=== PATIENT | female | born 1940 | race Caucasian/White ===

== ENCOUNTER 2022-01-01 10:27 | Emergency (ER) | payer OTHER ==
[~2022-01-01] VITALS: Ht 160 cm; Wt 127.0 kg
[~2022-01-01 10:27] MED LIST: ACIDOPHILUS PROB1 MG PO; ALBU90OI INH; ALBU90OI61 INH; ASCO500 PO; AZIT250 PO; BENZ100A PO; CELE200 PO; CEPH500 PO; CETI5 PO; CHOL10002 PO; CODGUAEL PO; CYAN1000 PO; Cipro500 MG PO; DICL25ER PO; DOCU100 PO; FLUSAL1005 INH; FLUT.05NI; FLUT1DIS5 INH; Flagyl500 MG PO; Flovent Diskus50 MCG; HYDR1TAB94 PO; Hair, Skin & N1 EACH PO; IBUP400 PO; KELP150 MC1 PO; Keflex500 MG PO; LISHYD1012 PO; LOSARTAN-HCTZ1 EAC2 PO; LOSARTAN-HCTZ1 EAC6 PO; METF500C PO; METFORMIN HCL1000 M2 PO; METPRE4DP PO; MONT10T PO; Mucinex600 MG PO; Mupirocin22 GM TOP; Nasonex17 GM; Norco 5-325 Ta1 EACH PO; OXYB5 PO; OXYTROL FOR WO1 EACH TD; PRED20 PO; PSEU120ER PO; Percocet 5-3251 EACH PO; Prednisone20 MG PO; Pyridium200 MG PO; SOLI5 PO; VITAMIN D-32000 UNIT PO; Ventolin/Prove6.7 GM; Zithromax250 MG PO; Zofran Odt4 MG SL
[2022-01-01] MEDS ORDERED: QVAR REDIHALE10.6 G2 IH (12:10)
[2022-01-01 12:32] LABS: BASOPHILS ABSOLUTE AUTO 0.05 K/mm3 (0.00-0.23); BASOPHILS PERCENT AUTO 1 % (0-2); EOSINOPHILS PERCENT AUTO 3 % (0-6); Hematocrit 38.4 % (33.0-51.0); IMMATURE GRAN ABSOLUTE AUTO 0.02 K/mm3 (0.00-0.10); IMMATURE GRAN PERCENT AUTO 0 % (0-1); LYMPHOCYTES ABSOLUTE AUTO 0.87 K/mm3 (0.84-5.20); LYMPHOCYTES PERCENT AUTO 11 % (21-46); MONOCYTES PERCENT AUTO 8 % (4-13); Mean Corpuscular HGB 30.2 pg (26.0-34.0); Mean Corpuscular HGB Conc 31.3 g/dL (31.5-36.5); Mean Corpuscular Volume 97 fL (80-100); NEUTROPHILS ABSOLUTE AUTO 6.14 K/mm3 (1.96-9.15); NEUTROPHILS PERCENT AUTO 78 % (41-73); Platelet Count 269 K/mm3 (150-400); RDW Coefficient Variation 14.2 % (11.7-14.2); Red Blood Cell Count 3.98 M/mm3 (3.80-5.20); White Blood Cell Count 7.88 K/mm3 (4.00-11.30)
[2022-01-01 13:03] LABS: Influenza A, PCR NEGATIVE (NEGATIVE); Influenza B, PCR NEGATIVE (NEGATIVE); Resp Syncytial Virus, PCR NEGATIVE (NEGATIVE); SARS-Cov-2 (COVID-19) PCR, MMC NEGATIVE (NEGATIVE)
[2022-01-01 13:32] LABS: Alanine Aminotransfer (ALT/SGP 18 U/L (12-78); Albumin, Blood 3.5 g/dL (3.4-5.0); Alk Phos 57 U/L (50-136); Anion Gap 8 mmol/L (6-16); Aspartate Aminotrans (AST/SGOT 13 U/L (12-37); Bilirubin, Total 0.3 mg/dL (0.1-1.0); Blood Urea Nitrogen 22 mg/dL (8-24); Bun/Creatinine Ratio 25.3 (12.0-20.0); CO2, Blood 25 mmol/L (21-32); Chloride, Blood 106 mmol/L (98-108); Creatinine, Blood 0.87 mg/dL (0.40-1.00); Globulin, Blood 3.6 g/dL (2.2-4.0); Glomerular Filtration Rate >60 (60-); Glucose, Blood 106 mg/dL (70-99); Potassium, Blood 4.5 mmol/L (3.5-5.5); Sodium, Blood 139 mmol/L (136-145); Total Protein, Blood 7.1 g/dL (6.4-8.2)
[2022-01-01] MEDS ORDERED: IPRAT-ALBUT 0.5-3 ML NEB (14:36)
[2022-01-01] MEDS ORDERED: AZIT250 PO (14:36)
[2022-01-01] MEDS ORDERED: METPRE4DP PO (14:36)
== END 2022-01-01 15:07 | disposition home or self-care (01) ==
LOC: ER 10:27
PROVIDERS: Emergency Medicine
DX: J44.0 Chronic obstructive pulmonary disease with (acute) lower respiratory infection (principal); J20.9 Acute bronchitis, unspecified; J44.1 Chronic obstructive pulmonary disease with (acute) exacerbation; Z20.822 Contact with and (suspected) exposure to COVID-19
CPT/HCPCS: 0241U; 36415; 71045; 80053; 83880; 84484; 85025; 93005; 93010; 94640; 96374; 99285-25; J2930

== ENCOUNTER 2022-03-31 14:18 | Emergency (ER) | payer OTHER ==
[~2022-03-31] VITALS: Ht 160 cm; Wt 127.0 kg
[~2022-03-31 14:18] MED LIST changes: -ACIDOPHILUS PROB1 MG PO; -ALBU90OI INH; -ALBU90OI61 INH; -ASCO500 PO; -BENZ100A PO; -CELE200 PO; -CEPH500 PO; -CETI5 PO; -CHOL10002 PO; -CODGUAEL PO; -CYAN1000 PO; -Cipro500 MG PO; -DICL25ER PO; -DOCU100 PO; -FLUSAL1005 INH; -FLUT.05NI; -FLUT1DIS5 INH; -Flagyl500 MG PO; -Flovent Diskus50 MCG; -Hair, Skin & N1 EACH PO; -IBUP400 PO; +IPRAT-ALBUT 0.5-3 ML NEB; -KELP150 MC1 PO; -Keflex500 MG PO; -LISHYD1012 PO; -LOSARTAN-HCTZ1 EAC2 PO; -METF500C PO; -MONT10T PO; -Mucinex600 MG PO; -Mupirocin22 GM TOP; -Nasonex17 GM; -Norco 5-325 Ta1 EACH PO; -OXYB5 PO; -OXYTROL FOR WO1 EACH TD; -PRED20 PO; -PSEU120ER PO; -Percocet 5-3251 EACH PO; -Prednisone20 MG PO; -Pyridium200 MG PO; +QVAR REDIHALE10.6 G2 IH; -SOLI5 PO; -VITAMIN D-32000 UNIT PO; -Zithromax250 MG PO; -Zofran Odt4 MG SL
[2022-03-31 15:08] LABS: BASOPHILS ABSOLUTE AUTO 0.01 K/mm3 (0.00-0.23); BASOPHILS PERCENT AUTO 0 % (0-2); EOSINOPHILS ABSOLUTE AUTO 0.01 K/mm3 (0.00-0.68); EOSINOPHILS PERCENT AUTO 0 % (0-6); Hematocrit 36.5 % (33.0-51.0); Hemoglobin 11.9 g/dL (11.5-16.0); IMMATURE GRAN ABSOLUTE AUTO 0.01 K/mm3 (0.00-0.10); IMMATURE GRAN PERCENT AUTO 0 % (0-1); LYMPHOCYTES ABSOLUTE AUTO 0.52 K/mm3 (0.84-5.20); LYMPHOCYTES PERCENT AUTO 13 % (21-46); MONOCYTES ABSOLUTE AUTO 0.43 K/mm3 (0.16-1.47); MONOCYTES PERCENT AUTO 11 % (4-13); Mean Corpuscular HGB 30.1 pg (26.0-34.0); Mean Corpuscular HGB Conc 32.6 g/dL (31.5-36.5); Mean Corpuscular Volume 92 fL (80-100); Mean Platelet Volume 11.1 fL (9.1-12.4); NEUTROPHILS ABSOLUTE AUTO 2.95 K/mm3 (1.96-9.15); NEUTROPHILS PERCENT AUTO 75 % (41-73); Platelet Count 219 K/mm3 (150-400); RDW Coefficient Variation 13.2 % (11.7-14.2); Red Blood Cell Count 3.95 M/mm3 (3.80-5.20); White Blood Cell Count 3.93 K/mm3 (4.00-11.30)
[2022-03-31 15:40] LABS: Albumin, Blood 3.4 g/dL (3.4-5.0); Albumin/Globulin Ratio 1.2 (0.8-1.8); Bilirubin, Total 0.2 mg/dL (0.1-1.0); Bun/Creatinine Ratio 18.6 (12.0-20.0); Calcium, Blood 8.3 mg/dL (8.5-10.1); Creatinine, Blood 0.97 mg/dL (0.40-1.00); Globulin, Blood 2.9 g/dL (2.2-4.0); Total Protein, Blood 6.3 g/dL (6.4-8.2)
== END 2022-03-31 16:55 | disposition home or self-care (01) ==
LOC: ER 14:18
PROVIDERS: Emergency Medicine
DX: K52.1 Toxic gastroenteritis and colitis (principal); T37.5X5A Adverse effect of antiviral drugs, initial encounter; E87.1 Hypo-osmolality and hyponatremia; U07.1 COVID-19
CPT/HCPCS: 36415; 80053; 85025; A9270; J7030

== ENCOUNTER 2022-08-04 20:06 | Emergency (ER) | payer OTHER ==
[~2022-08-04] VITALS: Ht 160 cm; Wt 113.4 kg
[~2022-08-04 20:06] MED LIST changes: +ACIDOPHILUS PROB1 MG PO; +ALBU90OI INH; +ALBU90OI61 INH; +ASCO500 PO; +BENZ100A PO; +CELE200 PO; +CEPH500 PO; +CETI5 PO; +CHOL10002 PO; +CODGUAEL PO; +CYAN1000 PO; +Cipro500 MG PO; +DICL25ER PO; +DOCU100 PO; +FLUSAL1005 INH; +FLUT.05NI; +FLUT1DIS5 INH; +Flagyl500 MG PO; +Flovent Diskus50 MCG; +Hair, Skin & N1 EACH PO; +IBUP400 PO; +KELP150 MC1 PO; +Keflex500 MG PO; +LISHYD1012 PO; +LOSARTAN-HCTZ1 EAC2 PO; +METF500C PO; +MONT10T PO; +Mucinex600 MG PO; +Mupirocin22 GM TOP; +Nasonex17 GM; +Norco 5-325 Ta1 EACH PO; +OXYB5 PO; +OXYTROL FOR WO1 EACH TD; +PRED20 PO; +PSEU120ER PO; +Percocet 5-3251 EACH PO; +Prednisone20 MG PO; +Pyridium200 MG PO; +SOLI5 PO; +VITAMIN D-32000 UNIT PO; +Zithromax250 MG PO; +Zofran Odt4 MG SL
[2022-08-04 20:37] LABS: BASOPHILS ABSOLUTE AUTO 0.05 K/mm3 (0.00-0.23); BASOPHILS PERCENT AUTO 1 % (0-2); EOSINOPHILS ABSOLUTE AUTO 0.24 K/mm3 (0.00-0.68); EOSINOPHILS PERCENT AUTO 3 % (0-6); Hematocrit 36.2 % (33.0-51.0); Hemoglobin 11.9 g/dL (11.5-16.0); IMMATURE GRAN ABSOLUTE AUTO 0.01 K/mm3 (0.00-0.10); IMMATURE GRAN PERCENT AUTO 0 % (0-1); LYMPHOCYTES ABSOLUTE AUTO 1.08 K/mm3 (0.84-5.20); LYMPHOCYTES PERCENT AUTO 15 % (21-46); MONOCYTES ABSOLUTE AUTO 0.61 K/mm3 (0.16-1.47); MONOCYTES PERCENT AUTO 8 % (4-13); Mean Corpuscular HGB 30.8 pg (26.0-34.0); Mean Corpuscular HGB Conc 32.9 g/dL (31.5-36.5); Mean Corpuscular Volume 94 fL (80-100); Mean Platelet Volume 10.6 fL (9.1-12.4); NEUTROPHILS ABSOLUTE AUTO 5.35 K/mm3 (1.96-9.15); NEUTROPHILS PERCENT AUTO 73 % (41-73); Platelet Count 309 K/mm3 (150-400); RDW Coefficient Variation 13.4 % (11.7-14.2); Red Blood Cell Count 3.86 M/mm3 (3.80-5.20); White Blood Cell Count 7.34 K/mm3 (4.00-11.30)
[2022-08-04 20:54] LABS: Albumin, Blood 3.5 g/dL (3.4-5.0); Albumin/Globulin Ratio 0.9 (0.8-1.8); Bilirubin, Total 0.2 mg/dL (0.1-1.0); Calcium, Blood 9.4 mg/dL (8.5-10.1); Globulin, Blood 3.8 g/dL (2.2-4.0); Potassium, Blood 4.2 mmol/L (3.5-5.5); Total Protein, Blood 7.3 g/dL (6.4-8.2)
[2022-08-04] MEDS ORDERED: Voltaren100 GM TOP (22:01)
[2022-08-04] MEDS ORDERED: LIDO700A20 TOP (22:01)
[2022-08-04 22:06] LABS: Source, Urine Clean Catch
[2022-08-04 22:07] LABS: Bilirubin, Urine Neg (Neg); Blood, Urine 1+ (Neg); Glucose Qualitative, Urine Neg (Neg); Ketones, Urine Neg (Neg); Leukocyte Esterase, Urine 3+ (Neg); Nitrite, Urine Pos (Neg); Protein, Urine 1+ (Neg); Specific Gravity, Urine 1.015 (1.003-1.022); Urobilinogen, Urine NORM (Normal); pH, Urine 6.5 (5.0-8.0)
[2022-08-04 22:08] LABS: Appearance, Urine Hazy (Clear); Color, Urine Yellow (P-Yellow)
[2022-08-04 22:32] LABS: Bacteria Many /hpf; Red Blood Cells, Urine 0-2 /hpf (0-2); Squamous Epithelial Cells Rare /hpf (Few); White Blood Cells, Urine TNTC /hpf (0-5)
[2022-08-04] MEDS ORDERED: CEFP200 PO (22:38)
== END 2022-08-04 23:59 | disposition home or self-care (01) ==
LOC: ER 20:06
PROVIDERS: Physician Assistant
DX: N12 Tubulo-interstitial nephritis, not specified as acute or chronic (principal); J44.9 Chronic obstructive pulmonary disease, unspecified; E11.9 Type 2 diabetes mellitus without complications; K44.9 Diaphragmatic hernia without obstruction or gangrene; E66.01 Morbid (severe) obesity due to excess calories; Z68.41 Body mass index [BMI] 40.0-44.9, adult; Z87.891 Personal history of nicotine dependence; Z88.7 Allergy status to serum and vaccine; Z88.8 Allergy status to other drugs, medicaments and biological substances; Z91.048 Other nonmedicinal substance allergy status; Z79.899 Other long term (current) drug therapy; Z79.84 Long term (current) use of oral hypoglycemic drugs
CPT/HCPCS: 51701; 74176; 80053; 81001; 83690; 84484; 85025; 87077; 87086; 87186; 93005; 93010; 96365; 96375; 99284-25; J0696; J2405; J3010

== ENCOUNTER 2022-11-26 15:01 | Emergency (ER) | payer OTHER ==
[~2022-11-26] VITALS: Ht 160 cm; Wt 127.0 kg
[~2022-11-26 15:01] MED LIST changes: +CEFP200 PO; +LIDO700A20 TOP; +Voltaren100 GM TOP
[2022-11-26 15:42] LABS: BASOPHILS ABSOLUTE AUTO 0.03 K/mm3 (0.00-0.23); BASOPHILS PERCENT AUTO 0 % (0-2); EOSINOPHILS ABSOLUTE AUTO 0.18 K/mm3 (0.00-0.68); EOSINOPHILS PERCENT AUTO 3 % (0-6); Hematocrit 35.9 % (33.0-51.0); Hemoglobin 11.7 g/dL (11.5-16.0); IMMATURE GRAN ABSOLUTE AUTO 0.02 K/mm3 (0.00-0.10); IMMATURE GRAN PERCENT AUTO 0 % (0-1); LYMPHOCYTES ABSOLUTE AUTO 0.83 K/mm3 (0.84-5.20); LYMPHOCYTES PERCENT AUTO 12 % (21-46); MONOCYTES ABSOLUTE AUTO 0.53 K/mm3 (0.16-1.47); MONOCYTES PERCENT AUTO 7 % (4-13); Mean Corpuscular HGB 30.3 pg (26.0-34.0); Mean Corpuscular HGB Conc 32.6 g/dL (31.5-36.5); Mean Corpuscular Volume 93 fL (80-100); Mean Platelet Volume 10.7 fL (9.1-12.4); NEUTROPHILS ABSOLUTE AUTO 5.57 K/mm3 (1.96-9.15); NEUTROPHILS PERCENT AUTO 78 % (41-73); Platelet Count 286 K/mm3 (150-400); RDW Coefficient Variation 14.6 % (11.7-14.2); RDW Standard Deviation 50.2 fL (35.1-46.3); Red Blood Cell Count 3.86 M/mm3 (3.80-5.20); White Blood Cell Count 7.16 K/mm3 (4.00-11.30)
[2022-11-26 16:06] LABS: Albumin, Blood 3.6 g/dL (3.4-5.0); Albumin/Globulin Ratio 1.1 (0.8-1.8); Bilirubin, Total 0.3 mg/dL (0.1-1.0); Bun/Creatinine Ratio 25.2 (12.0-20.0); Calcium, Blood 9.2 mg/dL (8.5-10.1); Creatinine, Blood 0.95 mg/dL (0.40-1.00); Globulin, Blood 3.3 g/dL (2.2-4.0); Potassium, Blood 4.4 mmol/L (3.5-5.5); Total Protein, Blood 6.9 g/dL (6.4-8.2)
[2022-11-26] MEDS ORDERED: OXYC5 PO (19:08)
[2022-11-26] MEDS ORDERED: Mupirocin22 GM TOP (19:08)
== END 2022-11-26 19:17 | disposition home or self-care (01) ==
LOC: ER 15:01
PROVIDERS: Physician Assistant
DX: M79.605 Pain in left leg (principal); L98.491 Non-pressure chronic ulcer of skin of other sites limited to breakdown of skin; E11.9 Type 2 diabetes mellitus without complications; I10 Essential (primary) hypertension; Z79.899 Other long term (current) drug therapy; Z79.84 Long term (current) use of oral hypoglycemic drugs; Z87.891 Personal history of nicotine dependence
CPT/HCPCS: 36415; 73502; 73630; 80053; 85025; A9270

== ENCOUNTER → 2023-04-29 | Outpatient (CLI) | payer OTHER ==
[~2023-04-29] MED LIST changes: +OXYC5 PO
== END | disposition home or self-care (01) ==
LOC: LAB SHORT 13:42 → LAB 13:42
DX: N39.0 Urinary tract infection, site not specified (principal)
CPT/HCPCS: 87077; 87086; 87186

== ENCOUNTER → 2024-07-07 | Outpatient (CLI) | payer OTHER ==
[~2024-07-07] MED LIST changes: +Bactrim Ds Tab1 EACH PO; +LOSA25 PO; +MULVITA PO
[2024-07-08 13:24] LABS: Albumin, Blood 3.5 g/dL (3.4-5.0); Albumin/Globulin Ratio 1.1 (0.8-1.8); Bilirubin, Total 0.3 mg/dL (0.1-1.0); Bun/Creatinine Ratio 15.5 (12.0-20.0); Calcium, Blood 8.9 mg/dL (8.5-10.1); Creatinine, Blood 0.97 mg/dL (0.40-1.00); Globulin, Blood 3.1 g/dL (2.2-4.0); Potassium, Blood 4.9 mmol/L (3.5-5.5); Total Protein, Blood 6.6 g/dL (6.4-8.2)
== END ==
LOC: LAB 16:32 → LAB SHORT 16:32
PROVIDERS: Family Medicine
DX: E11.9 Type 2 diabetes mellitus without complications (principal)
CPT/HCPCS: 80053; 83036

== ENCOUNTER → 2024-09-29 | Outpatient (CLI) | payer OTHER ==
[~2024-09-29] MED LIST changes: +DOXY100 PO; +HYDROCODONE-AC1 EA10 PO
[2024-09-29 11:57] LABS: Source, Urine Clean Catch
[2024-09-29 18:58] LABS: Appearance, Urine Cloudy (Clear); Bilirubin, Urine Neg (Neg); Blood, Urine 2+ (Neg); Glucose Qualitative, Urine Neg (Neg); Ketones, Urine Neg (Neg); Leukocyte Esterase, Urine 3+ (Neg); Nitrite, Urine Neg (Neg); Protein, Urine 2+ (Neg); Urobilinogen, Urine NORM (Normal)
[2024-09-29 19:11] LABS: Color, Urine Pale Yellow (P-Yellow)
[2024-09-29 19:12] LABS: Bacteria Many /hpf; Squamous Epithelial Cells Few /hpf (Few); White Blood Cells, Urine TNTC /hpf (0-5)
== END ==
LOC: LAB SHORT 09:00 → LAB 09:00
PROVIDERS: Family Medicine
DX: N39.0 Urinary tract infection, site not specified (principal)
CPT/HCPCS: 81001; 87077; 87086; 87186

== ENCOUNTER 2024-12-17 13:34 | Emergency (ER) | payer OTHER ==
[~2024-12-17] VITALS: Ht 160 cm; Wt 127.0 kg
[2024-12-17 14:59] LABS: BASOPHILS ABSOLUTE AUTO 0.02 K/mm3 (0.00-0.23); BASOPHILS PERCENT AUTO 0 % (0-2); EOSINOPHILS ABSOLUTE AUTO 0.11 K/mm3 (0.00-0.68); EOSINOPHILS PERCENT AUTO 1 % (0-6); Hematocrit 34.3 % (33.0-51.0); Hemoglobin 11.3 g/dL (11.5-16.0); IMMATURE GRAN ABSOLUTE AUTO 0.04 K/mm3 (0.00-0.10); IMMATURE GRAN PERCENT AUTO 0 % (0-1); LYMPHOCYTES ABSOLUTE AUTO 0.44 K/mm3 (0.84-5.20); LYMPHOCYTES PERCENT AUTO 4 % (21-46); MONOCYTES ABSOLUTE AUTO 0.75 K/mm3 (0.16-1.47); MONOCYTES PERCENT AUTO 7 % (4-13); Mean Corpuscular HGB 31.7 pg (26.0-34.0); Mean Corpuscular HGB Conc 32.9 g/dL (31.5-36.5); Mean Corpuscular Volume 96 fL (80-100); Mean Platelet Volume 10.3 fL (9.1-12.4); NEUTROPHILS PERCENT AUTO 87 % (41-73); Platelet Count 210 K/mm3 (150-400); RDW Coefficient Variation 14.7 % (11.7-14.2); RDW Standard Deviation 52.4 fL (35.1-46.3); Red Blood Cell Count 3.56 M/mm3 (3.80-5.20); White Blood Cell Count 10.86 K/mm3 (4.00-11.30)
[2024-12-17 15:24] LABS: Albumin, Blood 2.9 g/dL (3.4-5.0); Albumin/Globulin Ratio 0.8 (0.8-1.8); Bilirubin, Total 0.4 mg/dL (0.1-1.0); Calcium, Blood 8.6 mg/dL (8.5-10.1); Creatinine, Blood 1.84 mg/dL (0.40-1.00); Globulin, Blood 3.7 g/dL (2.2-4.0); Potassium, Blood 4.5 mmol/L (3.5-5.5); Total Protein, Blood 6.6 g/dL (6.4-8.2)
[2024-12-17 17:09] LABS: CORONAVIRUS COVID-19 AG Negative (NEGATIVE); INFLUENZA A AG Negative (NEGATIVE); INFLUENZA B AG Negative (NEGATIVE)
[2024-12-17 17:25] VITALS: BP 161/49
== END 2024-12-17 17:50 | disposition home or self-care (01) ==
LOC: ER 13:34
PROVIDERS: Emergency Medicine
DX: R07.9 Chest pain, unspecified (principal); I10 Essential (primary) hypertension; J44.9 Chronic obstructive pulmonary disease, unspecified; E11.9 Type 2 diabetes mellitus without complications; Z88.1 Allergy status to other antibiotic agents; Z91.041 Radiographic dye allergy status; Z79.84 Long term (current) use of oral hypoglycemic drugs; Z79.2 Long term (current) use of antibiotics; Z79.899 Other long term (current) drug therapy; Z87.891 Personal history of nicotine dependence
CPT/HCPCS: 71046; 80053; 83690; 84484; 85025; 87428-QW; 93005; 93010; 99285-25

== ENCOUNTER 2024-12-22 15:44 | Inpatient (IN) | payer OTHER ==
[~2024-12-22] VITALS: Ht 160 cm; Wt 126.5 kg
[2024-12-22] MEDS ORDERED: Furosemide 10 MG / ML 2ML Vial IV ONE ×2 (17:45→21:00)
[2024-12-22] MEDS ORDERED: FLU VACC TS2024-25(6MOS UP)/PF 45 MCG/0.5 ML SYRINGE IM ONE (18:35)
[2024-12-22] MEDS ORDERED: TRAM50 PO (19:15)
[2024-12-22] MEDS ORDERED: OMEP20ER PO (19:17)
[2024-12-22] MEDS ORDERED: DOCU100 PO (19:17)
[2024-12-22] MEDS ORDERED: HYDCHL25 PO (19:18)
[2024-12-22] MEDS ORDERED: Ondansetron HCl 2 MG / ML 2ML Vial IV PRN (20:40)
[2024-12-22] MEDS ORDERED: Docusate Sodium 100 MG Cap PO PRN (20:40)
[2024-12-22] MEDS ORDERED: HYDROcodone 10-APAP 325 TAB PO PRN (20:40)
[2024-12-22] MEDS ORDERED: Mometasone Furoate Inhaler 220 mcg 14 ACT INH SCH (20:45)
[2024-12-22] MEDS ORDERED: Albuterol HFA200 ACT/6.7 GM INH INH PRN (21:00)
[2024-12-22] MEDS ORDERED: Insulin Human Lispro 100 Units/ML 3ML Syringe SC SCH (21:00)
[2024-12-22 21:08] VITALS: BP 146/87
[2024-12-23 04:52] VITALS: BP 135/60
[2024-12-23 05:01] LABS: BASOPHILS ABSOLUTE AUTO 0.02 K/mm3 (0.00-0.23); BASOPHILS PERCENT AUTO 0 % (0-2); EOSINOPHILS ABSOLUTE AUTO 0.15 K/mm3 (0.00-0.68); EOSINOPHILS PERCENT AUTO 2 % (0-6); Hematocrit 32.6 % (33.0-51.0); Hemoglobin 10.3 g/dL (11.5-16.0); IMMATURE GRAN ABSOLUTE AUTO 0.09 K/mm3 (0.00-0.10); IMMATURE GRAN PERCENT AUTO 1 % (0-1); LYMPHOCYTES ABSOLUTE AUTO 0.94 K/mm3 (0.84-5.20); LYMPHOCYTES PERCENT AUTO 14 % (21-46); MONOCYTES ABSOLUTE AUTO 0.54 K/mm3 (0.16-1.47); MONOCYTES PERCENT AUTO 8 % (4-13); Mean Corpuscular HGB 31.1 pg (26.0-34.0); Mean Corpuscular HGB Conc 31.6 g/dL (31.5-36.5); Mean Corpuscular Volume 99 fL (80-100); Mean Platelet Volume 9.7 fL (9.1-12.4); NEUTROPHILS ABSOLUTE AUTO 5.24 K/mm3 (1.96-9.15); NEUTROPHILS PERCENT AUTO 75 % (41-73); Platelet Count 305 K/mm3 (150-400); RDW Coefficient Variation 14.4 % (11.7-14.2); RDW Standard Deviation 52.6 fL (35.1-46.3); Red Blood Cell Count 3.31 M/mm3 (3.80-5.20); White Blood Cell Count 6.98 K/mm3 (4.00-11.30)
[2024-12-23 05:16] LABS: Calcium, Blood 8.4 mg/dL (8.5-10.1); Creatinine, Blood 1.03 mg/dL (0.40-1.00); Potassium, Blood 4.4 mmol/L (3.5-5.5)
[2024-12-23] MEDS ORDERED: Omeprazole 20 MG CapCR PO SCH (06:00)
[2024-12-23 07:32] VITALS: BP 143/62
[2024-12-23] MEDS ORDERED: Multivitamins 1 Tab PO SCH (09:00)
[2024-12-23] MEDS ORDERED: Furosemide 10 MG/ML 4ML Vial IV SCH (09:00)
[2024-12-23] MEDS ORDERED: Losartan Potassium 25 MG Tab PO SCH (09:00)
[2024-12-23] MEDS ORDERED: HydroCHLOROthiazide 25 mg Tab PO SCH (09:00)
[2024-12-23] MEDS ORDERED: Enoxaparin 40 MG/0.4 ML SYR SC SCH (09:00)
[2024-12-23 10:14] VITALS: BP 122/58
[2024-12-23] MEDS ORDERED: Furosemide 10 MG/ML 4ML Vial IV ONE (16:00)
[2024-12-23 17:03] VITALS: BP 137/58
--- NOTE | 2024-12-23 19:28 | NUR ---
SHIFT SUMMARY- ELEVATED THE FOOT OF PT BED, PLACED MEPILEXES IN AREAS THAT SEEM TO HAVE PRESSURE ON THEM. PT ALERT AND ORIENTED, 2P MAX ASSIST WITH ROLL AND CHANGE IF NEEDED, SKIN IS FRAGILE D/T FLUID OVERLOAD. EDEMA IN THE LEFT FOOT IS GREATLY REDUCED FROM THIS MORNING. PT IN BED, CALL LIGHT IN REACH NO S&S OF DISTRESS NOTED. TELE AND PUREWICK IN PLACE, PG IS SL ORDER FOR NO [facility] DVT
[2024-12-23 20:02] VITALS: BP 134/65
[2024-12-23 23:55] VITALS: BP 138/55
[2024-12-24 03:51] VITALS: BP 142/64
[2024-12-24 05:59] LABS: BASOPHILS ABSOLUTE AUTO 0.03 K/mm3 (0.00-0.23); BASOPHILS PERCENT AUTO 0 % (0-2); EOSINOPHILS ABSOLUTE AUTO 0.13 K/mm3 (0.00-0.68); EOSINOPHILS PERCENT AUTO 2 % (0-6); Hematocrit 30.9 % (33.0-51.0); Hemoglobin 10.1 g/dL (11.5-16.0); IMMATURE GRAN ABSOLUTE AUTO 0.13 K/mm3 (0.00-0.10); IMMATURE GRAN PERCENT AUTO 2 % (0-1); LYMPHOCYTES ABSOLUTE AUTO 1.04 K/mm3 (0.84-5.20); LYMPHOCYTES PERCENT AUTO 15 % (21-46); MONOCYTES ABSOLUTE AUTO 0.57 K/mm3 (0.16-1.47); MONOCYTES PERCENT AUTO 8 % (4-13); Mean Corpuscular HGB 30.9 pg (26.0-34.0); Mean Corpuscular HGB Conc 32.7 g/dL (31.5-36.5); Mean Corpuscular Volume 95 fL (80-100); Mean Platelet Volume 9.8 fL (9.1-12.4); NEUTROPHILS ABSOLUTE AUTO 5.04 K/mm3 (1.96-9.15); NEUTROPHILS PERCENT AUTO 73 % (41-73); Platelet Count 291 K/mm3 (150-400); RDW Coefficient Variation 14.1 % (11.7-14.2); RDW Standard Deviation 48.7 fL (35.1-46.3); Red Blood Cell Count 3.27 M/mm3 (3.80-5.20); White Blood Cell Count 6.94 K/mm3 (4.00-11.30)
[2024-12-24 06:20] LABS: Bun/Creatinine Ratio 30.8 (12.0-20.0); Calcium, Blood 8.4 mg/dL (8.5-10.1); Creatinine, Blood 1.07 mg/dL (0.40-1.00); Potassium, Blood 3.7 mmol/L (3.5-5.5)
--- NOTE | 2024-12-24 06:45 | NUR ---
SHIFT SUMMARY: Pt is admitted for edema of the lower EXT. and is a full code. Is alert and able to make needs known. ADLs have been 1-2 depending on activity. Pain has been managed with PRN medication. Carlos Alberto reports sinus in the 60s with a 1deg and bundle branch.
[2024-12-24 07:17] VITALS: BP 158/61
[2024-12-24 08:20] VITALS: BP 150/72
[2024-12-24] MEDS ORDERED: Empagliflozin 10 MG TAB PO SCH (09:00)
--- NOTE | 2024-12-24 11:56 | NUR ---
DRESSING CHANGE COMPLETED- PT WAS SAT UP FOR BREAKFAST AND IT OCCLUDED HER PUREWICK. ATTENDS AND MYRANDA CHANGED, PUREWICK CHANGED, LINNEN CHANGE, ATTENDS CHANGE, MYRANDA CHANGE, TOWELS SOILED, PARTIAL BATH OF BLE CHEST AND RK AREA 2X'S, NEW PUREWICK PLACED. DRESSINGS REMOVED, LEGS CLEANED AND NEW DRESSINGS PLACED. NEW DRESSINGS USE JUAN FRANCISCO WRAP PER DR ROMAN, VERY LIGHT COMPRESSION. TOTAL TIME IN ROOM WAS GREATER THAN 1 HOUR. MORE STAFF NEEDED.
[2024-12-24] MEDS ORDERED: Furosemide 10 MG/ML 4ML Vial IV SCH (15:00)
[2024-12-24 15:59] VITALS: BP 145/62
--- NOTE | 2024-12-24 17:39 | NUR ---
SHIFT SUMMARY- PT ALERT AND ORIENTED, WOUND CARE COMPLETED. PT SHOULD BE A 2P ASSIST FOR ROLL AND CHANGES WHEN THE PUREWICK IS BEING CHANGED. PT WAS ASSISTED UP TO A WC AND INTO THE BATHROOM FOR A BM TODAY. THEN SHE SAT IN THE RECLINER AND WAS ABLE TO WORK WITH THERAPY. PT STATED SHE PREFERS THE METHOD SHE AND HER HAVE AT HOME. THE PT EXPLAINED HOW HE DOES ALL THE WORK FOR HER. STAFF EXPLAINED THAT HERE SHE HAS TO DO WHAT SHE CAN FOR HERSELF. PT IS BACK IN BED, CALL LIGHT IN REACH NO S&S OF DISTRESS, ON ROOM AIR WITH PUREWICK IN PLACE.
--- NOTE | 2024-12-24 19:32 | NUR ---
PT IS NOT A DAILY WEIGHT- PT WAS WEIGHED ON ADMIT AT 131.9 KG BUT THIS WAS NOT ON RECORD. EDITED INITIAL ADMIT WEIGHT TO REFLECT THE ACTUAL WEIGHT OBTAINED ON ARRIVAL TO [facility] FLOOR. NEW WEIGHT TODAY WAS 126.5 KG. PASSED ON TO NIGHT RN THAT THE PT SHOULD BE WEIGHED REGULARLY SHE IS BEING DIEURESED. HER FEET AND LOWER LEGS ARE REDUCING IN SIZE BUT THERE IS REDNESS AND SOME HEAT AND PAIN IN THE BACK OF THE LEFT LEG. WOUND CARE IS BEING PERFORMED ORDERED, BUT THE PT IS NOT CURRENTLY ON ANTIBIOTICS AND MAY NOT NEED THEM. MD IS AWARE OF THE REDNESS, THE HEAT WAS NOTED THIS EVENING AT SHIFT CHANGE [facility] BEDSIDE REPORT. PASSED ON TO NIGHT [employer] IN REPORT.
[2024-12-24 19:35] VITALS: BP 124/57
[2024-12-24 23:29] VITALS: BP 140/58
[2024-12-25 03:44] VITALS: BP 156/74
[2024-12-25 05:46] LABS: BASOPHILS ABSOLUTE AUTO 0.03 K/mm3 (0.00-0.23); BASOPHILS PERCENT AUTO 0 % (0-2); EOSINOPHILS ABSOLUTE AUTO 0.15 K/mm3 (0.00-0.68); EOSINOPHILS PERCENT AUTO 2 % (0-6); Hematocrit 31.9 % (33.0-51.0); Hemoglobin 10.3 g/dL (11.5-16.0); IMMATURE GRAN ABSOLUTE AUTO 0.12 K/mm3 (0.00-0.10); IMMATURE GRAN PERCENT AUTO 2 % (0-1); LYMPHOCYTES ABSOLUTE AUTO 1.32 K/mm3 (0.84-5.20); LYMPHOCYTES PERCENT AUTO 19 % (21-46); MONOCYTES ABSOLUTE AUTO 0.57 K/mm3 (0.16-1.47); MONOCYTES PERCENT AUTO 8 % (4-13); Mean Corpuscular HGB 30.9 pg (26.0-34.0); Mean Corpuscular HGB Conc 32.3 g/dL (31.5-36.5); Mean Corpuscular Volume 96 fL (80-100); Mean Platelet Volume 9.5 fL (9.1-12.4); NEUTROPHILS PERCENT AUTO 68 % (41-73); Platelet Count 323 K/mm3 (150-400); RDW Coefficient Variation 14.3 % (11.7-14.2); RDW Standard Deviation 50.2 fL (35.1-46.3); Red Blood Cell Count 3.33 M/mm3 (3.80-5.20); White Blood Cell Count 6.79 K/mm3 (4.00-11.30)
[2024-12-25 06:07] LABS: Albumin, Blood 2.8 g/dL (3.4-5.0); Anion Gap 7 mmol/L (3-11); Blood Urea Nitrogen 33 mg/dL (8-24); Bun/Creatinine Ratio 27.3 (12.0-20.0); CO2, Blood 36 mmol/L (21-32); Calcium, Blood 8.5 mg/dL (8.5-10.1); Chloride, Blood 96 mmol/L (98-108); Creatinine, Blood 1.21 mg/dL (0.40-1.00); Glomerular Filtration Rate 44 (60-); Glucose, Blood 137 mg/dL (70-99); Magnesium, Blood 2.1 mg/dL (1.6-2.4); Phosphorus, Blood 3.9 mg/dL (2.5-4.9); Potassium, Blood 3.5 mmol/L (3.5-5.5); Sodium, Blood 135 mmol/L (136-145)
[2024-12-25 07:34] VITALS: BP 137/61
[2024-12-25 11:56] VITALS: BP 114/60
[2024-12-25] MEDS ORDERED: Polyethylene Glycol 3350 17 gm PO SCH (14:00)
[2024-12-25 16:18] VITALS: BP 115/54
--- NOTE | 2024-12-25 17:35 | NUR ---
PT PLEASANT COOP TODAY. MEDICATED FOR PAIN THIS ONCE DAY. DRESSING CHANGE PERFORMED PER ORDERS. PT STATES LEGS MUCH BETTER. NO OTHER CONCERNS NOTED. BED IN LOW POSITIOIN, CALL LITE IN REACH, CALLS APPROP.
[2024-12-25 19:21] VITALS: BP 112/50
[2024-12-26 00:12] VITALS: BP 167/77
[2024-12-26 04:39] VITALS: BP 148/67
--- NOTE | 2024-12-26 06:29 | NUR ---
SHIFT SUMMARY PT A&OX3-4 AND ANSWERS QUESTIONS APPROPRIATELY. PT RECEIVED SCHEDULED AND PRN MEDICATIONS. PT VSS, NO COMPLAINTS OF CP/PRESSURE OR SOB. PT SPENT MOST OF SHIFT IN BED WITH EYES CLOSED AND RESPIRATIONS EVEN AND UNLABORED. NO ACUTE EVENTS AT THIS TIME. PT SPENT MOST OF SHIFT IN BED WITH EYES CLOSED AND RESPIRATIONS EVEN AND UNLABORED. REPOSITIONED INDEPENDENTLY. FALL PRECAUTIONS IN PLACE AND CALL LIGHT IN REACH.
[2024-12-26 07:11] VITALS: BP 150/73
[2024-12-26 09:41] LABS: BASOPHILS ABSOLUTE AUTO 0.05 K/mm3 (0.00-0.23); BASOPHILS PERCENT AUTO 1 % (0-2); EOSINOPHILS ABSOLUTE AUTO 0.16 K/mm3 (0.00-0.68); EOSINOPHILS PERCENT AUTO 2 % (0-6); Hematocrit 33.7 % (33.0-51.0); Hemoglobin 10.8 g/dL (11.5-16.0); IMMATURE GRAN ABSOLUTE AUTO 0.13 K/mm3 (0.00-0.10); IMMATURE GRAN PERCENT AUTO 2 % (0-1); LYMPHOCYTES ABSOLUTE AUTO 0.99 K/mm3 (0.84-5.20); LYMPHOCYTES PERCENT AUTO 12 % (21-46); MONOCYTES ABSOLUTE AUTO 0.43 K/mm3 (0.16-1.47); MONOCYTES PERCENT AUTO 5 % (4-13); Mean Corpuscular HGB 31.1 pg (26.0-34.0); Mean Corpuscular Volume 97 fL (80-100); Mean Platelet Volume 9.7 fL (9.1-12.4); NEUTROPHILS ABSOLUTE AUTO 6.47 K/mm3 (1.96-9.15); NEUTROPHILS PERCENT AUTO 79 % (41-73); Platelet Count 325 K/mm3 (150-400); RDW Coefficient Variation 14.1 % (11.7-14.2); RDW Standard Deviation 50.4 fL (35.1-46.3); Red Blood Cell Count 3.47 M/mm3 (3.80-5.20); White Blood Cell Count 8.23 K/mm3 (4.00-11.30)
[2024-12-26 10:03] LABS: Albumin, Blood 2.9 g/dL (3.4-5.0); Anion Gap 9 mmol/L (3-11); Blood Urea Nitrogen 33 mg/dL (8-24); Bun/Creatinine Ratio 28.7 (12.0-20.0); CO2, Blood 34 mmol/L (21-32); Calcium, Blood 8.5 mg/dL (8.5-10.1); Chloride, Blood 92 mmol/L (98-108); Creatinine, Blood 1.15 mg/dL (0.40-1.00); Glomerular Filtration Rate 47 (60-); Glucose, Blood 173 mg/dL (70-99); Phosphorus, Blood 3.8 mg/dL (2.5-4.9); Potassium, Blood 3.2 mmol/L (3.5-5.5); Sodium, Blood 132 mmol/L (136-145)
[2024-12-26 12:23] VITALS: BP 137/58
--- NOTE | 2024-12-26 16:25 | NUR ---
PT HAD A BM TODAY. PT HAD MINIMAL C/O PAIN THROUGH THE SHIFT. PRN MEDICATION GIVEN SEE EMAR FOR DETAILS. PT HAD NO C/O SOB CHEST PAIN OR NAUSEA. PT HAS NO QUESTIONS OR CONCERNS AT THIS TIME.
[2024-12-26 16:43] VITALS: BP 119/57
[2024-12-26 19:50] VITALS: BP 135/56
[2024-12-26] MEDS ORDERED: Losartan Potassium 25 MG Tab PO SCH (20:00)
[2024-12-27 04:03] VITALS: BP 117/55
[2024-12-27 05:13] LABS: Hematocrit 31.1 % (33.0-51.0); Mean Corpuscular HGB Conc 32.2 g/dL (31.5-36.5); Mean Corpuscular Volume 96 fL (80-100); Mean Platelet Volume 9.8 fL (9.1-12.4); Platelet Count 296 K/mm3 (150-400); RDW Standard Deviation 49.3 fL (35.1-46.3); Red Blood Cell Count 3.23 M/mm3 (3.80-5.20)
[2024-12-27 05:38] LABS: Albumin, Blood 2.8 g/dL (3.4-5.0); Anion Gap 8 mmol/L (3-11); Blood Urea Nitrogen 31 mg/dL (8-24); Bun/Creatinine Ratio 29.2 (12.0-20.0); CO2, Blood 34 mmol/L (21-32); Calcium, Blood 8.4 mg/dL (8.5-10.1); Chloride, Blood 94 mmol/L (98-108); Creatinine, Blood 1.06 mg/dL (0.40-1.00); Glomerular Filtration Rate 51 (60-); Glucose, Blood 147 mg/dL (70-99); Phosphorus, Blood 3.8 mg/dL (2.5-4.9); Potassium, Blood 3.2 mmol/L (3.5-5.5); Sodium, Blood 133 mmol/L (136-145)
--- NOTE | 2024-12-27 06:37 | NUR ---
SUMMARY: PT A/OX4, CALLS APPROPRIATELY TO SPECIFY NEEDS AND IS PLEASANT AND COOPERATIVE W/CARE. SHE REMAINS 2PMAX ASSIST OOB BUT WAS BEDREST T/O NOCTE D/T BLE EDEMA, DX'S AND PAIN. WOUND CARE WAS ATTENDED TO AND NEW DX'S APPLIED TO BLE'S PER ORDERS. HASMUKH RECEIVED PRN FOR TOLERABLE RELIEF OF ASSOCIATED PAIN. EDEMA CONT'S TO IMPROVE W/DIURESIS AND LEGS ELEVATED IN BED. PUREWIC IS IN PLACE AND BEDPAND USED PRN. TURN SCHEDULE MAINTAINTED AND PT IS ABLE TO ASSIST W/REPOSITIONING. 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 NO ACUTE CHANGES, VSS/AFEBRILE. WCTM AND REPORT TO DAY RN.
--- NOTE | 2024-12-27 07:35 | NUR ---
ASSUMPTION OF CARE: ASSUMED CARE OF PATIENT. COMPLETED SHIFT CHANGE REPORT REPORT. LYING IN BED, SLEEPING. EYES CLOSED, BREATHING EVEN AND UNLABORED ON ROOM AIR. BED IN LOWEST POSITION. CALL LIGHT WITHIN REACH.
[2024-12-27] MEDS ORDERED: Losartan Potassium 50 MG Tab PO SCH (09:00)
[2024-12-27 16:25] VITALS: BP 148/52
[2024-12-27] MEDS ORDERED: Potassium Chloride 20 MEQ TabCR PO STA (18:49)
--- NOTE | 2024-12-27 19:46 | NUR ---
END OF SHIFT SUMMARY: A&Ox4. PLEASANT AND COOPERATIVE WITH CARE. CALLS APPROPRIATELY AND IS ABLE TO ADVOCATE NEEDS EFFECTIVELY. BEDREST. INCONTINENT OF BLADDER; PUREWICK IN PLACE. MEDS WHOLE c FLUIDS. MEDICATED PRN PAIN ONCE TODAY. MAINTAINING SPO2 >92% ON RA. TELE NSR c 1HB & BBB. NO ACUTE CONCERNS. BED IN LOWEST POSITION, CALL LIGHT WITHIN REACH, ALL NEEDS MET. REPORT TO ONCOMING NURSE.
[2024-12-27 19:56] LABS: Magnesium, Blood 2.1 mg/dL (1.6-2.4); Potassium, Blood 3.5 mmol/L (3.5-5.5)
[2024-12-27 20:01] VITALS: BP 129/55
[2024-12-27] MEDS ORDERED: Miconazole Nitrate 2% 85 GM PWD TOP SCH (21:00)
[2024-12-27 23:55] VITALS: BP 114/57
[2024-12-28 04:34] VITALS: BP 145/62
--- NOTE | 2024-12-28 06:13 | NUR ---
SUMMARY: PT A/OX4, CALLS APPROPRIATELY TO SPECIFY NEEDS AND IS PLEASANT AND COOPERATIVE W/CARE. SHE REMAINS ON BEDREST W/TURN SCHEDULE MAINTAINED. PUREWICK IN PLACE FOR BLADDER INCONTINENCE AND LIMITED MOBILITY. BLE EDEMA PERSISTS BUT IS IMPROVING W/DIURESIS. LEGS ARE RED AND SWOLLEN W/HEALING VENOUS STASIS ULCERS. NEW ORDERS FOR AARONPeggy NOE RECEIVED PRN FOR TOLERABLE RELIEF OF BLE PAIN. 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 SHE HAD X1 EPISODE 5 BEAT VTACH AND WAS ASYMPTOMATIC OF DISTRESS. MD NOTIFIED W/NO NEW ORDERS RECEIVED. VSS/AFEBRILE, NO ACUTE CHANGES. WCTM AND REPORT TO DAY RN.
[2024-12-28] MEDS ORDERED: Potassium Chloride 20 MEQ/15 ML UDC PO SCH (08:00)
[2024-12-28 10:10] LABS: Calcium, Blood 8.6 mg/dL (8.5-10.1); Creatinine, Blood 1.31 mg/dL (0.40-1.00); Phosphorus, Blood 3.2 mg/dL (2.5-4.9); Potassium, Blood 3.9 mmol/L (3.5-5.5)
[2024-12-28 12:00] VITALS: BP 131/52
[2024-12-28] MEDS ORDERED: JARDIANCE10 MG PO (12:24)
[2024-12-28] MEDS ORDERED: MICONAZOLE NIT130 GM TOP (12:32)
[2024-12-28] MEDS ORDERED: POTA10T PO (12:34)
--- NOTE | 2024-12-28 15:58 | NUR ---
ASSUMED CARE OF PT PT COOPERATIVE WITH CARE, IS A/O X4 WITH STABLE VS. LEGS WERE AARON AND MEDI HONEY WAS APPLIED, NO C/O PAIN AT THIS TIME. PURWIC IN PLACE AND DRAINING
--- NOTE | 2024-12-28 16:01 | NUR ---
DISCHARGE INSTRUCTIONS ORDERED AND IMPLEMENTED. MEDS FAXED TO [facility], CAT TIP AND INTACT.
== END 2024-12-28 15:16 | disposition home or self-care (01) | DRG 299 ==
LOC: ER 15:44 → MEDS 18:32
PROVIDERS: Internal Medicine; ADMIT Family Medicine
DX: I87.2 Venous insufficiency (chronic) (peripheral) (principal); I50.33 Acute on chronic diastolic (congestive) heart failure; L97.319 Non-pressure chronic ulcer of right ankle with unspecified severity; L97.929 Non-pressure chronic ulcer of unspecified part of left lower leg with unspecified severity; E87.1 Hypo-osmolality and hyponatremia; Z68.43 Body mass index [BMI] 50.0-59.9, adult; I47.20 Ventricular tachycardia, unspecified; I11.0 Hypertensive heart disease with heart failure; J44.9 Chronic obstructive pulmonary disease, unspecified; E11.9 Type 2 diabetes mellitus without complications; E66.01 Morbid (severe) obesity due to excess calories; E87.6 Hypokalemia; I27.20 Pulmonary hypertension, unspecified; K21.9 Gastro-esophageal reflux disease without esophagitis; Z88.1 Allergy status to other antibiotic agents; Z79.899 Other long term (current) drug therapy; Z79.84 Long term (current) use of oral hypoglycemic drugs; Z91.148 Patient's other noncompliance with medication regimen for other reason; R60.0 Localized edema
CPT/HCPCS: 36415; 80048; 80053; 80069; 82947; 83735; 83880; 84100; 84132; 84484; 85025; 85027; 93005; 93010; 93306; 93970; 94640; 94664; 94760; 96374; 97110; 97162; 99285-25; A9270; C1751; J1650; J1940

== ENCOUNTER 2025-01-19 17:23 | Emergency (ER) | payer OTHER ==
[~2025-01-19] VITALS: Ht 162.6 cm; Wt 113.4 kg
[~2025-01-19 17:23] MED LIST changes: +HYDCHL25 PO; +JARDIANCE10 MG PO; +MICONAZOLE NIT130 GM TOP; +OMEP20ER PO; +POTA10T PO; +TRAM50 PO
[2025-01-19 17:49] LABS: Hematocrit 34.4 % (33.0-51.0); Hemoglobin 11.8 g/dL (11.5-16.0); Mean Corpuscular HGB 31.6 pg (26.0-34.0); Mean Corpuscular HGB Conc 34.3 g/dL (31.5-36.5); Mean Corpuscular Volume 92 fL (80-100); Mean Platelet Volume 9.7 fL (9.1-12.4); Platelet Count 218 K/mm3 (150-400); RDW Coefficient Variation 13.4 % (11.7-14.2); RDW Standard Deviation 45.6 fL (35.1-46.3); Red Blood Cell Count 3.74 M/mm3 (3.80-5.20); White Blood Cell Count 3.03 K/mm3 (4.00-11.30)
[2025-01-19 18:07] LABS: BAND PERCENT MAN 3 % (0-8); BASOPHILS PERCENT MAN 0 % (0-2); EOSINOPHILS PERCENT MAN 0 % (0-6); LYMPHOCYTES % ATYPICAL MANUAL 3 % (0-0); LYMPHOCYTES ABSOLUTE MAN 0.54 K/mm3 (0.84-5.20); LYMPHOCYTES PERCENT MAN 15 % (21-46); MONOCYTES ABSOLUTE MAN 0.18 K/mm3 (0.16-1.47); MONOCYTES PERCENT MAN 6 % (4-13); SEG NEUTROPHILS PERCENT MAN 73 % (41-73); TOTAL CELLS COUNTED 100
[2025-01-19 18:14] LABS: Albumin, Blood 3.2 g/dL (3.4-5.0); Albumin/Globulin Ratio 0.9 (0.8-1.8); Bilirubin, Total 0.2 mg/dL (0.1-1.0); Bun/Creatinine Ratio 17.9 (12.0-20.0); Calcium, Blood 8.2 mg/dL (8.5-10.1); Creatinine, Blood 1.79 mg/dL (0.40-1.00); Globulin, Blood 3.5 g/dL (2.2-4.0); Potassium, Blood 3.3 mmol/L (3.5-5.5); Total Protein, Blood 6.7 g/dL (6.4-8.2)
[2025-01-19 18:25] LABS: Source, Urine Voided
[2025-01-19 18:31] LABS: Appearance, Urine Clear (Clear); Bilirubin, Urine Neg (Neg); Blood, Urine Neg (Neg); Color, Urine Yellow (P-Yellow); Glucose Qualitative, Urine 1+ (Neg); Ketones, Urine Neg (Neg); Leukocyte Esterase, Urine 1+ (Neg); Nitrite, Urine Neg (Neg); Protein, Urine 2+ (Neg); Specific Gravity, Urine 1.015 (1.003-1.022); Urobilinogen, Urine NORM (Normal)
[2025-01-19 18:37] LABS: Bacteria Mod /hpf; Red Blood Cells, Urine 0-2 /hpf (0-2); Squamous Epithelial Cells Rare /hpf (Few); Yeast/Fungi Urine Many /hpf
[2025-01-19 19:06] LABS: Influenza B, PCR NEGATIVE (NEGATIVE); Resp Syncytial Virus, PCR NEGATIVE (NEGATIVE); SARS-Cov-2 (COVID-19) PCR, MMC NEGATIVE (NEGATIVE)
[2025-01-19 19:17] LABS: Influenza A, PCR POSITIVE (NEGATIVE)
[2025-01-19 19:30] VITALS: BP 139/57
[2025-01-19] MEDS ORDERED: CEPH500 PO (19:53)
[2025-01-19] MEDS ORDERED: ONDA4ODT MM (19:53)
== END 2025-01-19 20:35 | disposition home or self-care (01) ==
LOC: ER 17:23
PROVIDERS: Emergency Medicine
DX: J10.1 Influenza due to other identified influenza virus with other respiratory manifestations (principal); N39.0 Urinary tract infection, site not specified; Z87.891 Personal history of nicotine dependence; E11.9 Type 2 diabetes mellitus without complications; J44.9 Chronic obstructive pulmonary disease, unspecified; I10 Essential (primary) hypertension; Z91.048 Other nonmedicinal substance allergy status; Z88.1 Allergy status to other antibiotic agents; Z91.041 Radiographic dye allergy status; Z79.51 Long term (current) use of inhaled steroids; Z79.891 Long term (current) use of opiate analgesic; Z79.83 Long term (current) use of bisphosphonates; Z79.899 Other long term (current) drug therapy; Z79.84 Long term (current) use of oral hypoglycemic drugs
CPT/HCPCS: 0241U; 71045; 80053; 81001; 83690; 84484; 85025; 87086; 87106; 99283-25